=== PATIENT | female | born 2005 | race Caucasian/White ===

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

== ENCOUNTER 2023-03-22 15:33 | Emergency (ER) | payer OTHER, MEDICAID, SELFPAY ==
[2023-03-22 15:55] VITALS: BP 119/55; PULSE 85; RESP 18; TEMP 37; O2SAT 97; BMI 32.4
--- NOTE | 2023-03-22 16:01 | DI.RAD.S_ITS ---
PROCEDURE: XR ANKLE RT MIN 3V INDICATIONS: injury to ankle TECHNIQUE: 3 views of the ankle were acquired. COMPARISON: [facility], CR, XR ANKLE RT MIN 3V, 08/28/2019, 15:45. FINDINGS: Bones: No fractures or dislocations. Ankle mortise is normally aligned. No suspicious bony lesions. Soft tissues: No tibiotalar joint effusion. Achilles tendon appears normal. IMPRESSION: No acute ankle fracture or dislocation. Ankle mortise is congruent. Dictated by: Edmar Mix M.D. on 03/22/2023 at 16:40 Approved by: Edmar Mix M.D. on 03/22/2023 at 16:40
--- NOTE | 2023-03-22 17:09 | ED.LOWEXIN ---
HPI - Extremity Injury (Lower) <Froilan Black PA-C - Last Filed: 03/22/23 20:10> General Chief Complaint: Extremity Injury, Lower Stated Complaint: rt ankle injury Time Seen by Provider: 03/22/23 15:49 Source: patient Mode of arrival: Ambulatory History of Present Illness HPI Narrative: This is a 17-year-old female presents to the emergency department complaining of right ankle pain after slipping and rolling her right ankle. She denies any numbness or any other injuries. Complains solely of right ankle pain. Related Data Previous Rx's Medication Instructions Recorded aripiprazole 5 mg tablet 5 mg PO BEDTIME #90 tabs 05/04/22 hydroxyzine HCl 25 mg tablet 50 mg PO BEDTIME PRN anxiety #60 05/04/22 tabs trazodone 50 mg tablet 50 mg PO BEDTIME PRN sleep #60 tabs 05/04/22 nitrofurantoin 100 mg PO BID #10 caps 05/24/22 monohydrate/macrocrystals 100 mg capsule (Macrobid) ondansetron 4 mg disintegrating 4 mg PO Q8H PRN nausea and 02/25/23 tablet vomiting #6 tabs Allergies Allergy/AdvReac Type Severity Reaction Status Date / Time No Known Drug Allergies Allergy Verified 09/07/22 13:43 Review of Systems <Froilan Black PA-C - Last Filed: 03/22/23 20:10> Review of Systems Narrative: GENERAL: Denies chills, fatigue, malaise, fever, sweats. HEENT: Denies sinus pain, ear pain, sore throat, difficulty swallowing, dizziness. RESPIRATORY: Denies dyspnea, cough, wheezing, hemoptysis, sputum. CARDIOVASCULAR: Denies chest pain, palpitations, orthopnea, edema, GASTROINTESTINAL: Denies nausea, vomiting, abdominal pain, diarrhea, constipation, melena. : Denies dysuria, frequency, incontinence, hematuria, urinary retention. MUSCULOSKELETAL: Reports right ankle pain SKIN: Denies rash, skin lesions, or other NEUROLOGIC: Denies weakness, headache, numbness, change in speech, confusion, seizures, incoordination. PSYCHIATRIC: No concerning psychosocial issues. 12 point review of systems is negative except for those stated above Patient History <MUMTAZ Flynn Last Filed: 03/22/23 20:10> Medical History Anxiety and depression Bilateral hip pain Mood disorder No known health problems (02/07/12) Social History Smoking Status: Never smoker Smoking Status: Never smoker tobacco type: vaping alcohol intake frequency: 0-2 drinks per day Substance Use Type: does not use Exam <Froilan Black PA-C - Last Filed: 03/22/23 20:10> Narrative Exam Narrative: GENERAL: Well-developed patient, in mild distress. HEAD: Atraumatic. Normocephalic. EYES: Pupils equal round and reactive. Extraocular motions intact. No scleral icterus. No injection or drainage. ENT: Nose without bleeding, purulent drainage. Throat without erythema, tonsillar hypertrophy or exudate. Airway patent. NECK: Trachea midline. Non tender EXTREMITIES: Mild tenderness to palpation to the right lateral malleolus. Neurovascularly intact throughout. BACK: Nontender without deformity or crepitance. No flank tenderness. NEURO: AOx3. SKIN: No rash or erythema of visible areas Initial Vital Signs Initial Vital Signs: Vital Signs Temperature 98.6 F 03/22/23 15:55 Pulse Rate 85 03/22/23 15:55 Respiratory Rate 18 03/22/23 15:55 Blood Pressure 119/55 L 03/22/23 15:55 Pulse Oximetry 97 03/22/23 15:55 Oxygen Delivery Method Room Air 03/22/23 15:55 <Carlos Arita DO - Last Filed: 03/28/23 04:12> Initial Vital Signs Initial Vital Signs: Vital Signs Temperature 98.6 F 03/22/23 15:55 Pulse Rate 85 03/22/23 15:55 Respiratory Rate 18 03/22/23 15:55 Blood Pressure 119/55 L 03/22/23 15:55 Pulse Oximetry 97 03/22/23 15:55 Oxygen Delivery Method Room Air 03/22/23 15:55 Course <Froilan Black PA-C - Last Filed: 03/22/23 20:10> Orders Ordered: ED Orders 03/22/23 16:01 XR ankle RT min 3V Stat Vital Signs Vital signs: Vital Signs - 8 hr 03/22/23 15:55 03/22/23 17:13 Temperature 98.6 F Pulse Rate 85 82 Respiratory Rate 18 16 Blood Pressure 119/55 L 120/60 Pulse Oximetry 97 99 Oxygen Delivery Method Room Air Room Air <Carlos Arita DO - Last Filed: 03/28/23 04:12> Orders Ordered: ED Orders 03/22/23 16:01 XR ankle RT min 3V Stat Vital Signs Vital signs: Vital Signs - 8 hr 03/22/23 15:55 03/22/23 17:13 Temperature 98.6 F Pulse Rate 85 82 Respiratory Rate 18 16 Blood Pressure 119/55 L 120/60 Pulse Oximetry 97 99 Oxygen Delivery Method Room Air Room Air MDM - Extremity Injury (Lower) <Froilan Black PA-C - Last Filed: 03/22/23 20:10> Imaging Data Extremity x-ray #1: Radiologist's Impression: [address] [address] XRay Report Signed Patient: Yessenia Javier MR#: [id number] : 2005 Acct:[id number] Age/Sex: 17 / F Date of Service: 03/22/23 Loc: ED Accession Number: [id number] ?? Procedure: XR ankle RT min 3V Ordering Provider: Carlos Arita D.O. PROCEDURE:? XR ANKLE RT MIN 3V ? INDICATIONS:? injury to ankle ? TECHNIQUE:? 3 views of the ankle were acquired.? ? COMPARISON:? [facility], , XR ANKLE RT MIN 3V, 08/28/2019, 15:45. ? FINDINGS:? ? Bones:? No fractures or dislocations.? Ankle mortise is normally aligned.? No suspicious bony lesions.? ? Soft tissues:? No tibiotalar joint effusion.? Achilles tendon appears normal.? ? ? IMPRESSION:? No acute ankle fracture or dislocation.? Ankle mortise is congruent. ? Dictated by: Edmar Mix M.D. on 03/22/2023 at 16:40 ? ? Approved by: Edmar Mix M.D. on 03/22/2023 at 16:40 ? MDM Narrative Medical decision making narrative: MDM * differential diagnosis includes but not limited to right ankle fracture, neurovascular injury, ankle sprain * Prior records reviewed: Patient has not been here for similar complaints in the past * My lab interpretation: None obtained * My imgaing interpretation: Right ankle x-ray negative for fracture * Clinical Decision Rules/Scores evaluated: None * Independent discussions with: None ED Course: This is a 17-year-old female presenting to the emergency department due to a sprained ankle. X-ray negative for fractures and she was completely neurovascularly intact. Recommended conservative management. Shared Decision Making: Discussed plan with patient who is comfortable with the plan. Social Considerations: None Disposition: Discharged to home Discharge Plan Departure Patient Disposition: Home Clinical Impression: Right ankle sprain Instructions: DI for Ankle Sprain Activity Restrictions/Additional Instructions: Thank you for coming to the [facility] Emergency Department today. Your ankle x-ray was negative for any fractures. This is an ankle sprain. Please use ibuprofen and Tylenol as needed for the pain. I hope you feel better soon. Prescriptions: No Action ondansetron 4 mg tablet,disintegrating 4 mg PO Q8H PRN (Reason: nausea and vomiting) Qty: 6 0RF aripiprazole 5 mg tablet 5 mg PO BEDTIME Qty: 90 3RF hydroxyzine HCl 25 mg tablet 50 mg PO BEDTIME PRN (Reason: anxiety) Qty: 60 1RF trazodone 50 mg tablet 50 mg PO BEDTIME PRN (Reason: sleep) Qty: 60 3RF nitrofurantoin monohyd/m-cryst [Macrobid] 100 mg capsule 100 mg PO BID Qty: 10 0RF Rx Instructions: must administer with a meal/food Referrals: Kurtis Austin MD [Primary Care Provider] - Stand Alone Forms: Patient Portal/API, Work Release Note <Carlos Arita DO - Last Filed: 03/28/23 04:12> [facility] Attending Ravi Attestation: I was immediately available in the department for consultation. Documentation has been reviewed. I agree with assessment and plan.
[2023-03-22 17:13] VITALS: BP 120/60; PULSE 82; RESP 16; O2SAT 99
== END 2023-03-22 17:13 | disposition home or self-care (01) ==
PROVIDERS: Emergency Provider Physician Assistant Medical; Family Provider Pediatrics; PCP Pediatrics
DX: S93.401A Sprain of unspecified ligament of right ankle, initial encounter (principal); X50.1XXA Overexertion from prolonged static or awkward postures, initial encounter
CPT/HCPCS: 73610; 99281; 99283

== ENCOUNTER 2023-04-08 14:13 | Emergency (ER) | payer OTHER, MEDICAID, SELFPAY ==
--- NOTE | 2023-04-08 14:41 | DI.RAD.S_ITS ---
PROCEDURE: XR ANKLE RT MIN 3V INDICATIONS: states her sprain is worse TECHNIQUE: 3 views of the ankle were acquired. COMPARISON: [facility], CR, XR ANKLE RT MIN 3V, 03/22/2023, 15:56. FINDINGS: Bones: No fractures or dislocations. Ankle mortise is normally aligned. No suspicious bony lesions. Soft tissues: No tibiotalar joint effusion. Achilles tendon appears normal. IMPRESSION: No acute abnormality of the right ankle. If pain persists consider MRI. Dictated by: Anjel House M.D. on 04/08/2023 at 14:40 Approved by: Anjel House M.D. on 04/08/2023 at 14:41
[2023-04-08 14:42] VITALS: BP 125/65; PULSE 65; RESP 18; TEMP 36.8; O2SAT 97; BMI 31.9
--- NOTE | 2023-04-08 15:29 | ED_ITS ---
HPI - Extremity Problem <Adrienne Pollard PA-C - Last Filed: 04/08/23 22:14> General Chief complaint: Extremity Problem,Nontraumatic Stated complaint: R ankle sprain, worsening, ankle bone popping Time Seen by Provider: 04/08/23 15:28 Source: patient Mode of arrival: Family Vehicle History of Present Illness HPI Narrative: This is a 17-year-old woman with history of previous ankle sprains on the right multiple times most recently 03/22/2023 who presents with concern for persistent pain and a popping sensation with moving her foot after her ankle sprain sustained on 03/22/2023. Patient endorses that the next 2 days after her injury she was unable to use crutches and had to walk quite a bit on her injured foot in order to help a friend of hers who was having seizures. Patient stated that she did not actually use the crutches until yesterday and today and she does not feel that she elevated iced or used Gus wrap for compression early on either. Patient does endorse multiple previous sprains of her right ankle most recently about 1 year ago, she states she has sprained this ankle pretty significantly 3 or 4 times in total. She denies any known previous fracture or other injury to the affected area. She presents today in crutches without Gus wrap or other support. She states she was provided with an Gus wrap at her ED visit on the . She denies other complaints or concerns. Related Data Previous Rx's Medication Instructions Recorded aripiprazole 5 mg tablet 5 mg PO BEDTIME #90 tabs 05/04/22 hydroxyzine HCl 25 mg tablet 50 mg PO BEDTIME PRN anxiety #60 05/04/22 tabs trazodone 50 mg tablet 50 mg PO BEDTIME PRN sleep #60 tabs 05/04/22 nitrofurantoin 100 mg PO BID #10 caps 05/24/22 monohydrate/macrocrystals 100 mg capsule (Macrobid) ondansetron 4 mg disintegrating 4 mg PO Q8H PRN nausea and 02/25/23 tablet vomiting #6 tabs Allergies Allergy/AdvReac Type Severity Reaction Status Date / Time No Known Drug Allergies Allergy Verified 09/07/22 13:43 Review of Systems <Adrienne Pollard PA-C - Last Filed: 04/08/23 22:14> Review of Systems Narrative: See HPI Patient History <Adrienne Pollard PA-C - Last Filed: 04/08/23 22:14> Medical History Anxiety and depression Bilateral hip pain Mood disorder No known health problems (02/07/12) Social History Smoking Status: Never smoker Smoking Status: Never smoker tobacco type: vaping alcohol intake frequency: 0-2 drinks per day Substance Use Type: does not use Exam <Adrienne Pollard PA-C - Last Filed: 04/08/23 22:14> Narrative Exam Narrative: GENERAL: 17 year old patient appears stated age. Well-developed patient, in mild distress. HEAD: Atraumatic. Normocephalic. EYES: Pupils equal round and reactive. Extraocular motions intact. No scleral icterus. No injection or drainage. ENT: Nose without bleeding, purulent drainage. Airway patent. NECK: Trachea midline. CARDIOVASCULAR: Regular rate and rhythm without murmurs, gallops, or rubs. RESPIRATORY: Clear to auscultation. Breath sounds equal bilaterally. No wheezes, rales, or rhonchi. EXTREMITIES: There is mild swelling of the right ankle with tenderness over the lateral malleolus and ATFL. There is no bruising noted. Range of motion is intact with some increased pain. No edema or joint tenderness. The remainder of the bones of the foot are nontender, patient does have tenderness over the proximal fibula with no appreciable swelling. NEURO: AOx3. SKIN: No rash or erythema of visible areas Initial Vital Signs Initial Vital Signs: Vital Signs Temperature 98.2 F 04/08/23 14:42 Pulse Rate 65 04/08/23 14:42 Respiratory Rate 18 04/08/23 14:42 Blood Pressure 125/65 04/08/23 14:42 Pulse Oximetry 97 04/08/23 14:42 Oxygen Delivery Method Room Air 04/08/23 14:42 <Travis Lomeli DO - Last Filed: 04/08/23 22:19> Initial Vital Signs Initial Vital Signs: Vital Signs Temperature 98.2 F 04/08/23 14:42 Pulse Rate 65 04/08/23 14:42 Respiratory Rate 18 04/08/23 14:42 Blood Pressure 125/65 04/08/23 14:42 Pulse Oximetry 97 04/08/23 14:42 Oxygen Delivery Method Room Air 04/08/23 14:42 Course <Adrienne Pollard PA-C - Last Filed: 04/08/23 22:14> Orders Ordered: ED Orders 04/08/23 14:41 XR ankle RT min 3V Stat 04/08/23 18:26 XR tibia fibula RT 2V Stat Vital Signs Vital signs: Vital Signs - 8 hr 04/08/23 14:42 04/08/23 17:41 Temperature 98.2 F Pulse Rate 65 53 L Respiratory Rate 18 Blood Pressure 125/65 119/73 Pulse Oximetry 97 98 Oxygen Delivery Method Room Air Room Air <Travis Lomeli DO - Last Filed: 04/08/23 22:19> Orders Ordered: ED Orders 04/08/23 14:41 XR ankle RT min 3V Stat 04/08/23 18:26 XR tibia fibula RT 2V Stat Vital Signs Vital signs: Vital Signs - 8 hr 04/08/23 14:42 04/08/23 17:41 Temperature 98.2 F Pulse Rate 65 53 L Respiratory Rate 18 Blood Pressure 125/65 119/73 Pulse Oximetry 97 98 Oxygen Delivery Method Room Air Room Air MDM - Extremity (Nontraumatic) <Adrienne Pollard PA-C - Last Filed: 04/08/23 22:14> Differential Diagnosis Differential diagnosis: Likely other (Sprain, strain, ankle sprain, fracture, fibula fracture) Imaging Data Extremity x-ray #1: My Impression: Agree with Radiology interpretation Radiologist's Impression: [address] [address] XRay Report Signed Patient: Yessenia Javier MR#: [id number] : 2005 Acct:[id number] Age/Sex: 17 / F Date of Service: 04/08/23 Loc: ED Accession Number: [id number] ?? Procedure: XR ankle RT min 3V Ordering Provider: Andreea Matt D.O. PROCEDURE:? XR ANKLE RT MIN 3V ? INDICATIONS:? states her sprain is worse ? TECHNIQUE:? 3 views of the ankle were acquired.? ? COMPARISON:? [facility], CR, XR ANKLE RT MIN 3V, 03/22/2023, 15:56. ? FINDINGS:? ? Bones:? No fractures or dislocations.? Ankle mortise is normally aligned.? No suspicious bony lesions.? ? Soft tissues:? No tibiotalar joint effusion.? Achilles tendon appears normal.? ? ? IMPRESSION:? No acute abnormality of the right ankle.? If pain persists consider MRI.? ? Dictated by: Anjel House M.D. on 04/08/2023 at 14:40 ? ? Approved by: Anjel House M.D. on 04/08/2023 at 14:41?? Extremity x-ray #2: My Impression: Agree with Radiology interpretation Radiologist's Impression: [address] [address] XRay Report Signed Patient: Yessenia Javier MR#: [id number] : 2005 Acct:[id number] Age/Sex: 17 / F Date of Service: 04/08/23 Loc: ED Accession Number: [id number] ?? Procedure: XR tibia fibula RT 2V Ordering Provider: Adrienne Pollard P.A-C PROCEDURE:? XR TIBIA FUBULA RT 2V ? INDICATIONS:? proximal fibula tenderness ? TECHNIQUE:? 2 views of the tibia and fibula were acquired.? ? COMPARISON:? None. ? FINDINGS:? ? Bones:? No fractures or dislocations.? No suspicious bony lesions.? ? Soft tissues:? No suspicious soft tissue calcifications or masses.? ? IMPRESSION:? Normal right tibia and fibula. ? ? Dictated by: Anjel House M.D. on 04/08/2023 at 18:17 ? ? Approved by: Anjel House M.D. on 04/08/2023 at 18:18?? MDM Narrative Medical decision making narrative: This is a 17-year-old female who presents with concern for persistent right ankle discomfort mild swelling pain and popping sensation after Pt seen for ankle injury and diagnosed with sprain on 03/22/23 in this ER. On exam today patient does have some persistent tenderness and mild swelling, notably she also has some proximal fibula tenderness and x-rays of the ankle repeat were ordered from triage, after exam x-rays of tibia and fibula also ordered. These returned unremarkable without evidence of fracture. Patient endorses not treating her injury with RI CE and not using crutches until yesterday, 17 days after she sustained her sprain due to worsening pain in the last few days. 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 She has been continuing to work since her injury. Notably also has multiple previous sprains of this ankle. Patient is placed in a orthopedic boot today advised to use the crutches that she has and stay off of her foot, provided with a work note for the next 6 days for light duty advised to follow-up with orthopedics if she is not improving with RI CE, crutches and nonweightbearing. Advanced imaging is not obtained today as I think it is unlikely the patient has an occult fracture, most likely she simply has a sprain strain that was not well cared for initially after injury. She is advised to a minimum follow up with her PCP see orthopedics if she is not improving. Return precautions provided, follow-up plan discussed, all questions answered. Discharge Plan Departure Patient Disposition: Home Clinical Impression: Right ankle sprain Activity Restrictions/Additional Instructions: *You have been diagnosed with [ Right ankle sprain] *What to do: *Please continue to take your regular medications as directed. [ ] New medication prescriptions sent to your pharmacy: [ ] [ ] New medication written as a paper prescription [X ] No new medications given *Please follow up with your primary care provider in 2-3 days, call for an appointment. Let them know you were seen in the Emergency Department and that we ask that you be seen in follow up. We will electronically transmit a record of today's note if your PCP is in our system. We re-x-rayed your ankle today and also looked at your tibia and fibula the bones in your lower leg these look okay and there is no evidence of fracture. Unfortunately you may take extra long to heal as you were not able to stay off of your sprained ankle when it 1st happened, I do want you using the ankle orthopedic boot provided today and using crutches for the next 7-10 days I would like you to use an Gus wrap at night when you are resting if you do not have a boot on. Please try to minimize weight-bearing and walking on your injured leg and I have also included contact information for orthopedics below as you have had multiple previous sprains of this ankle and your clearly having some delayed healing. *If you do not have a primary care provider please contact the [facility] Resource line at [phone]. They will ask some questions about your medical history and help get you set up with a doctor in the community. *Return to Emergency Department if you should have any new, worsening or concerning symptoms, such as [fever greater than 101 F, shaking chills, worsening pain, persistent vomiting or other bothersome symptoms] Prescriptions: No Action ondansetron 4 mg tablet,disintegrating 4 mg PO Q8H PRN (Reason: nausea and vomiting) Qty: 6 0RF aripiprazole 5 mg tablet 5 mg PO BEDTIME Qty: 90 3RF hydroxyzine HCl 25 mg tablet 50 mg PO BEDTIME PRN (Reason: anxiety) Qty: 60 1RF trazodone 50 mg tablet 50 mg PO BEDTIME PRN (Reason: sleep) Qty: 60 3RF nitrofurantoin monohyd/m-cryst [Macrobid] 100 mg capsule 100 mg PO BID Qty: 10 0RF Rx Instructions: must administer with a meal/food Referrals: Kurtis Austin MD [Primary Care Provider] - Amy Majano MD [Physician] - Stand Alone Forms: Patient Portal/API, Work Release Note <Travis Lomeli, DO - Last Filed: 04/08/23 22:19> [facility]: Dr Lomeli Co-Sign Statement: I was available for consultation during this patient's emergency department visit. This chart is signed by myself for administrative purposes only. I did not have direct contact with this patient during this visit. They were seen independently by the APC.
[2023-04-08 17:41] VITALS: BP 119/73; PULSE 53; O2SAT 98
--- NOTE | 2023-04-08 18:26 | DI.RAD.S_ITS ---
PROCEDURE: XR TIBIA FUBULA RT 2V INDICATIONS: proximal fibula tenderness TECHNIQUE: 2 views of the tibia and fibula were acquired. COMPARISON: None. FINDINGS: Bones: No fractures or dislocations. No suspicious bony lesions. Soft tissues: No suspicious soft tissue calcifications or masses. IMPRESSION: Normal right tibia and fibula. Dictated by: Anjel House M.D. on 04/08/2023 at 18:17 Approved by: Anjel House M.D. on 04/08/2023 at 18:18
== END 2023-04-08 19:05 | disposition home or self-care (01) ==
PROVIDERS: Emergency Provider Student in an Organized Health Care Education/Training Program; Family Provider Pediatrics; PCP Pediatrics
DX: S93.401D Sprain of unspecified ligament of right ankle, subsequent encounter (principal)
CPT/HCPCS: 73590; 73610; 99281; 99283

== ENCOUNTER 2023-07-27 15:15 | Outpatient (RCR) | payer OTHER, MEDICAID, SELFPAY ==
--- NOTE | 2023-07-07 15:48 | PT.OIE ---
Current Diagnoses Pain in right hip (07/07/23) Pain in left hip (07/07/23) Pain in right ankle and joints of right foot (07/07/23) Past Medical History (Last Reviewed 04/08/23 @ 22:07 by Adrienne Pollard PA-C) Anxiety and depression Bilateral hip pain Mood disorder No known health problems (02/07/12) Visit Care Team Role Provider Type Kurtis Austin MD Attending Provider Physician Family Provider Primary Care Provider Referring Provider Specialty: Pediatrics Address: [address] [place] [address], [facility] Email: [email or web address] Physical Therapy Initial Evaluation PT-OP-A Visit Information Start: 07/07/23 14:44 Freq: Status: Active Protocol: Document 07/07/23 15:33 ED (Rec: 07/07/23 15:48 ED [id number]) Out-Patient Physical Therapy Visit Information Visit Information Visit Type Initial Evaluation Visit Note 0/24 units Visit Start Time 14:50 Visit Stop Time 15:30 Total Visit Minutes 40 Visit Number 1 Evaluation Information Evaluation Date 07/07/23 PT-OP-B Current Condition Start: 07/07/23 14:44 Freq: Status: Active Protocol: Document 07/07/23 15:33 ED (Rec: 07/07/23 15:48 ED [id number]) Current Condition History of Current Condition Onset Date 3-4 years Current Complaints B hip, R ankle pain History of Current Condition Pt states that she has had B hip pain for years. It is worse with activity such as prolonged walking or when running and jumping which she only does when playing with her dog. She was told she has inflammed nerves in her hips and that's the cause. Pt also has R ankle pain that she believes is from recurrent ankle sprains with her most recent one being in the summer of this year. She states her hip and ankle pop all the time and that's very painful. PT-OP-C Subjective Start: 07/07/23 14:44 Freq: Status: Active Protocol: Document 07/07/23 15:33 ED (Rec: 07/07/23 15:48 ED [id number]) Patient Questionnaires Lower Extremity Functional Scale LEFS Score 44 / 80 LEFS Impairment 40 to 59% Impaired (Score 32- 47) OP-PT Pain Assessment Location B hips Pain Location Details B hips, down lateral thigh into ankle Intensity 8 Scale Used Numeric (0 - 10) Description Aching,Shooting,Tingling PT-OP-D Balance Start: 07/07/23 14:44 Freq: Status: Active Protocol: Document 07/07/23 15:33 ED (Rec: 07/07/23 15:48 ED [id number]) Balance Tests Single Limb Standing Single Limb- Right 5 seconds Single Limb- Left >10 seconds PT-OP-K Range of Motion Start: 07/07/23 14:44 Freq: Status: Active Protocol: Document 07/07/23 15:33 ED (Rec: 07/07/23 15:48 ED [id number]) Ankle and Foot Goniometric Range of Motion Ankle and Foot Right Active Ankle/Foot ROM WFL Yes Testing Position Standing Comments knee to wall: 9 cm Left Active Ankle/Foot ROM WFL Yes Testing Position Standing Comments knee to wall: 13 cm PT-OP-L Special Tests Start: 07/07/23 14:44 Freq: Status: Active Protocol: Document 07/07/23 15:33 ED (Rec: 07/07/23 15:48 ED [id number]) Special Tests Hip Special Tests Posterior Labral Test Test Results - Trendelenberg Test Results - Scour Test Test Results - PT-OP-T Assessment and Plan Start: 07/07/23 14:44 Freq: Status: Active Protocol: Document 07/07/23 15:33 ED (Rec: 07/07/23 15:48 ED [id number]) Physical Therapy Assessment Rehab Potential Rehabilitation Potential Fair Evaluation Complexity Number of Personal Factors/Comorbidities 1-2 Number of Body Systems Impaired 3 Clinical Presentation at Evaluation Evolving Impairments Impairments Activity Tolerance,Balance, Functional Activities, Functional Mobility,Pain, Strength Goals impact activities Impairment impact activities Court Attendant Goal (LTG) Pt will be able to perform jumping and landing activities c/o pain in ankles or hips. LTG Duration 6-8 weeks % improvement Impairment % improvement Short Term Goal (STG) Pt will report 15% improvement in B hip and/or R ankle pain. STG Duration [address] Goal (LTG) Pt will report 50% improvement in B hip and/or R ankle pain. LTG Duration 6-8 weeks single leg heel raise Impairment R LE single leg heel raise Short Term Goal (STG) Pt will be able to perform 5 single leg heel raises on R LE c/o pain. STG Duration [address] Goal (LTG) Pt will be able to perform 10 full ROM single leg heel raises on R LE c/o pain. LTG Duration 6-8 weeks LEFS Impairment LEFS Impairment score at evaluation: 44 / 80 Nursing Home Goal (LTG) Pt will improve LEFS score by > 9 points to a score <35/80. LTG Duration 6-8 weeks HEP Impairment HEP Short Term Goal (STG) Pt will report performing HEP >3 days/week. STG Duration 2-3 weeks Nursing Home Goal (LTG) Pt will report performing HEP >3 days/week. LTG Duration 6-8 weeks Assessment Summary Assessment Pt reported to PT for B hip and R ankle pain. Pt has history of R ankle sprains with her most recent being in the summer. Pt also appeared to have posterior tibilias related pain in R ankle as demonstrated when she tried to perform a single leg heel raise on her R LE. Pt demonstrated full ROM in B hips with no pain noted throughout the ROM. Pt likely requires some pain education and gradual exposure to stress to hips/ankles to improve self efficacy and confidence in her ability to perform daily and recreational activities. Physical Therapy Plan Frequency and Duration Frequency of Treatment 2x/Week Duration of treatment (weeks) 10 Plan of Care Start Date 07/07/23 Plan of Care End Date 10/05/23 Next Visit Focus/Plan Next Note Type Treatment Note Next Visit Plan TM, retro TM, (post tib heel raise, butt busters, SL balance) banded walk, ankle mobs, LTRs, pigeon stretch, squat
--- NOTE | 2023-07-07 15:49 | PT.OPPOC ---
Physical, Occupational & Speech Therapy At [facility] Current Diagnoses Pain in right hip (07/07/23) Pain in left hip (07/07/23) Pain in right ankle and joints of right foot (07/07/23) Visit Care Team Role Provider Type Kurtis Austin MD Attending Provider Physician Family Provider Primary Care Provider Referring Provider Specialty: Pediatrics Address: [address] [place] [address], [place], [address] Email: [email or web address] Plan Of Care PT-OP-T Assessment and Plan Start: 07/07/23 14:44 Freq: Status: Active Protocol: Document 07/07/23 15:33 ED (Rec: 07/07/23 15:48 ED [id number]) Physical Therapy Assessment Rehab Potential Rehabilitation Potential Fair Evaluation Complexity Number of Personal Factors/Comorbidities 1-2 Number of Body Systems Impaired 3 Clinical Presentation at Evaluation Evolving Impairments Impairments Activity Tolerance,Balance, Functional Activities, Functional Mobility,Pain, Strength Goals impact activities Impairment impact activities Tire Maker Goal (LTG) Pt will be able to perform jumping and landing activities c/o pain in ankles or hips. LTG Duration 6-8 weeks % improvement Impairment % improvement Short Term Goal (STG) Pt will report 15% improvement in B hip and/or R ankle pain. STG Duration 3 weeks Senior Living Goal (LTG) Pt will report 50% improvement in B hip and/or R ankle pain. LTG Duration 6-8 weeks single leg heel raise Impairment R LE single leg heel raise Short Term Goal (STG) Pt will be able to perform 5 single leg heel raises on R LE c/o pain. STG Duration 3 weeks Senior Living Goal (LTG) Pt will be able to perform 10 full ROM single leg heel raises on R LE c/o pain. LTG Duration 6-8 weeks LEFS Impairment LEFS Impairment score at evaluation: 44 / 80 Tire Maker Goal (LTG) Pt will improve LEFS score by > 9 points to a score <35/80. LTG Duration 6-8 weeks HEP Impairment HEP Short Term Goal (STG) Pt will report performing HEP >3 days/week. STG Duration 2-3 weeks Senior Living Goal (LTG) Pt will report performing HEP >3 days/week. LTG Duration 6-8 weeks Assessment Summary Assessment Pt reported to PT for B hip and R ankle pain. Pt has history of R ankle sprains with her most recent being in the summer. Pt also appeared to have posterior tibilias related pain in R ankle as demonstrated when she tried to perform a single leg heel raise on her R LE. Pt demonstrated full ROM in B hips with no pain noted throughout the ROM. Pt likely requires some pain education and gradual exposure to stress to hips/ankles to improve self efficacy and confidence in her ability to perform daily and recreational activities. Physical Therapy Plan Frequency and Duration Frequency of Treatment 2x/Week Duration of treatment (weeks) 10 Plan of Care Start Date 07/07/23 Plan of Care End Date 10/05/23 Next Visit Focus/Plan Next Note Type Treatment Note Next Visit Plan TM, retro TM, (post tib heel raise, butt busters, SL balance) banded walk, ankle mobs, LTRs, pigeon stretch, squat Plan of Care Dates Plan of Care Start Date 07/07/23 Plan of Care End Date 10/05/23 Electronically Signed by: Josemanuel Rodriguez, PT 07/07/23 1549 If you are in agreement with this Plan of Care, please return a signed and dated copy. I have reviewed this Plan of Care and certify that the skilled therapy services above are required to meet the patient?s needs. Physician Signature Date Printed Name and Credentials Clinical Instructor Signature Printed Name and Credentials
--- NOTE | 2023-07-14 15:59 | PT.OTN ---
Current Diagnoses Pain in right hip (07/14/23) Pain in left hip (07/14/23) Pain in right ankle and joints of right foot (07/14/23) Physical Therapy Treatment Note PT-OP-A Visit Information Start: 07/07/23 14:44 Freq: Status: Active Protocol: Document 07/14/23 15:55 ED (Rec: 07/14/23 15:59 ED [id number]) Out-Patient Physical Therapy Visit Information Visit Information Visit Type Initial Evaluation Visit Note 10/25 units Visit Start Time 15:15 Visit Stop Time 15:55 Total Visit Minutes 40 Visit Number 2 PT-OP-B Current Condition Start: 07/07/23 14:44 Freq: Status: Active Protocol: Document 07/07/23 15:33 ED (Rec: 07/07/23 15:48 ED [id number]) Current Condition History of Current Condition Onset Date 3-4 years Current Complaints B hip, R ankle pain History of Current Condition Pt states that she has had B hip pain for years. It is worse with activity such as prolonged walking or when running and jumping which she only does when playing with her dog. She was told she has inflammed nerves in her hips and that's the cause. Pt also has R ankle pain that she believes is from recurrent ankle sprains with her most recent one being in the summer of this year. She states her hip and ankle pop all the time and that's very painful. PT-OP-C Subjective Start: 07/07/23 14:44 Freq: Status: Active Protocol: Document 07/14/23 15:55 ED (Rec: 07/14/23 15:59 ED [id number]) OP-PT Subjective Patient Comments Patient Comments Pt states that her R knee is bothering her today. Her ankles and hip feeling the same. PT-OP-D Balance Start: 07/07/23 14:44 Freq: Status: Active Protocol: Document 07/07/23 15:33 ED (Rec: 07/07/23 15:48 ED [id number]) Balance Tests Single Limb Standing Single Limb- Right 5 seconds Single Limb- Left >10 seconds PT-OP-K Range of Motion Start: 07/07/23 14:44 Freq: Status: Active Protocol: Document 07/07/23 15:33 ED (Rec: 07/07/23 15:48 ED [id number]) Ankle and Foot Goniometric Range of Motion Ankle and Foot Right Active Ankle/Foot ROM WFL Yes Testing Position Standing Comments knee to wall: 9 cm Left Active Ankle/Foot ROM WFL Yes Testing Position Standing Comments knee to wall: 13 cm PT-OP-L Special Tests Start: 07/07/23 14:44 Freq: Status: Active Protocol: Document 07/07/23 15:33 ED (Rec: 07/07/23 15:48 ED [id number]) Special Tests Hip Special Tests Posterior Labral Test Test Results - Trendelenberg Test Results - Scour Test Test Results - PT-OP-Q Treatments Start: 07/07/23 14:44 Freq: Status: Active Protocol: Document 07/14/23 15:55 ED (Rec: 07/14/23 15:59 ED [id number]) Cardio Equipment Recumbent Bicycle Duration (Minutes) 5 Treadmill Duration (Minutes) 5 Speed 1.2 Incline 1.0 Other retro Therapeutic Exercises Sidelying Exercises glute matrix Sidelying Exercise Name Gail mukherjee, hip flexion, hip abduction Reps/Minutes x10 Sitting Exercises knee extension Sitting Exercise Name knee extension Resistance L1 Equipment Used machine Reps/Minutes 2x15 Standing Exercises banded walk Resistance turquoise Equipment Used band Reps/Minutes 2x15' heel raise Standing Exercise Name SL heel raise Equipment Used CHAVO Reps/Minutes 2x15 post tib heel raise Equipment Used small ball Reps/Minutes 2x20 heel cord stretch Reps/Minutes 2x1 minute PT-OP-T Assessment and Plan Start: 07/07/23 14:44 Freq: Status: Active Protocol: Document 07/14/23 15:55 ED (Rec: 07/14/23 15:59 ED [id number]) Physical Therapy Assessment Goals impact activities Impairment impact activities Long-Term Goal (LTG) Pt will be able to perform jumping and landing activities c/o pain in ankles or hips. LTG Duration 6-8 weeks % improvement Impairment % improvement Short Term Goal (STG) Pt will report 15% improvement in B hip and/or R ankle pain. STG Duration 3 weeks Long-Term Goal (LTG) Pt will report 50% improvement in B hip and/or R ankle pain. LTG Duration 6-8 weeks single leg heel raise Impairment R LE single leg heel raise Short Term Goal (STG) Pt will be able to perform 5 single leg heel raises on R LE c/o pain. STG Duration 3 weeks Hydroelectric Station Operator Goal (LTG) Pt will be able to perform 10 full ROM single leg heel raises on R LE c/o pain. LTG Duration 6-8 weeks LEFS Impairment LEFS Impairment score at evaluation: 44 / 80 Long-Term Goal (LTG) Pt will improve LEFS score by > 9 points to a score <35/80. LTG Duration 6-8 weeks HEP Impairment HEP Short Term Goal (STG) Pt will report performing HEP >3 days/week. STG Duration 2-3 weeks Long-Term Goal (LTG) Pt will report performing HEP >3 days/week. LTG Duration 6-8 weeks Assessment Summary Assessment Pt tolerated session well which included ankle, knee, and hip stimuli such as band walks, heel raises, knee extensions, and a glute matrix . Pt denied any increase in pain during or acutely after the movements. Pt understanding that PT will require some discomfort but also that she should work in a tolerable range and not try to push the pain. Physical Therapy Plan Frequency and Duration Frequency of Treatment 2x/Week Duration of treatment (weeks) 10 Plan of Care Start Date 07/07/23 Plan of Care End Date 10/05/23 Next Visit Focus/Plan Next Note Type Treatment Note Next Visit Plan TM, retro TM, (post tib heel raise, butt busters, SL balance) banded walk, ankle mobs, LTRs, pigeon stretch, squat
--- NOTE | 2023-07-26 17:16 | PT.OTN ---
Current Diagnoses Pain in right hip (07/26/23) Pain in left hip (07/26/23) Pain in right ankle and joints of right foot (07/26/23) Physical Therapy Treatment Note PT-OP-A Visit Information Start: 07/07/23 14:44 Freq: Status: Active Protocol: Document 07/26/23 17:12 ED (Rec: 07/26/23 17:16 ED [id number]) Out-Patient Physical Therapy Visit Information Visit Information Visit Type Treatment Note Visit Note 01/23 Visit Start Time 14:45 Visit Stop Time 15:15 Total Visit Minutes 30 Visit Number 3 PT-OP-B Current Condition Start: 07/07/23 14:44 Freq: Status: Active Protocol: Document 07/07/23 15:33 ED (Rec: 07/07/23 15:48 ED [id number]) Current Condition History of Current Condition Onset Date 3-4 years Current Complaints B hip, R ankle pain History of Current Condition Pt states that she has had B hip pain for years. It is worse with activity such as prolonged walking or when running and jumping which she only does when playing with her dog. She was told she has inflammed nerves in her hips and that's the cause. Pt also has R ankle pain that she believes is from recurrent ankle sprains with her most recent one being in the summer of this year. She states her hip and ankle pop all the time and that's very painful. PT-OP-C Subjective Start: 07/07/23 14:44 Freq: Status: Active Protocol: Document 07/26/23 17:12 ED (Rec: 07/26/23 17:16 ED [id number]) OP-PT Subjective Patient Comments Patient Comments Pt notes her R knee is feeling better but still is slightly painful. Hips are her primary complaint recently. States that she has been going on walks a little more now. PT-OP-D Balance Start: 07/07/23 14:44 Freq: Status: Active Protocol: Document 07/07/23 15:33 ED (Rec: 07/07/23 15:48 ED [id number]) Balance Tests Single Limb Standing Single Limb- Right 5 seconds Single Limb- Left >10 seconds PT-OP-K Range of Motion Start: 07/07/23 14:44 Freq: Status: Active Protocol: Document 07/07/23 15:33 ED (Rec: 07/07/23 15:48 ED [id number]) Ankle and Foot Goniometric Range of Motion Ankle and Foot Right Active Ankle/Foot ROM WFL Yes Testing Position Standing Comments knee to wall: 9 cm Left Active Ankle/Foot ROM WFL Yes Testing Position Standing Comments knee to wall: 13 cm PT-OP-L Special Tests Start: 07/07/23 14:44 Freq: Status: Active Protocol: Document 07/07/23 15:33 ED (Rec: 07/07/23 15:48 ED [id number]) Special Tests Hip Special Tests Posterior Labral Test Test Results - Trendelenberg Test Results - Scour Test Test Results - PT-OP-Q Treatments Start: 07/07/23 14:44 Freq: Status: Active Protocol: Document 07/26/23 17:12 ED (Rec: 07/26/23 17:16 ED [id number]) Cardio Equipment Treadmill Duration (Minutes) 5 Speed 1.2 Incline 1.0 Other retro Therapeutic Exercises Standing Exercises banded walk Resistance turquoise Equipment Used band Reps/Minutes 2x15' heel raise Standing Exercise Name SL heel raise Equipment Used CHAVO Reps/Minutes 2x15 post tib heel raise Equipment Used small ball Reps/Minutes 2x20 Therapeutic Activity Therapeutic Activity hinge Name B stance RDL Reps/Minutes 3x10 Comments 10# squat Name namibian split squat Reps/Minutes 3x8 Comments foam pad + dowel for balance Neuro Re-Education Treatment Balance Activities hip airplane Details hip airplane Surface flat Equipment n/a Reps/Duration 3x4/leg PT-OP-T Assessment and Plan Start: 07/07/23 14:44 Freq: Status: Active Protocol: Document 07/26/23 17:12 ED (Rec: 07/26/23 17:16 ED [id number]) Physical Therapy Assessment Goals impact activities Impairment impact activities Prison Goal (LTG) Pt will be able to perform jumping and landing activities c/o pain in ankles or hips. LTG Duration 6-8 weeks % improvement Impairment % improvement Short Term Goal (STG) Pt will report 15% improvement in B hip and/or R ankle pain. STG Duration 3 weeks Histologic Aide Goal (LTG) Pt will report 50% improvement in B hip and/or R ankle pain. LTG Duration 6-8 weeks single leg heel raise Impairment R LE single leg heel raise Short Term Goal (STG) Pt will be able to perform 5 single leg heel raises on R LE c/o pain. STG Duration 3 weeks Prison Goal (LTG) Pt will be able to perform 10 full ROM single leg heel raises on R LE c/o pain. LTG Duration 6-8 weeks LEFS Impairment LEFS Impairment score at evaluation: 44 / 80 Histologic Aide Goal (LTG) Pt will improve LEFS score by > 9 points to a score <35/80. LTG Duration 6-8 weeks HEP Impairment HEP Short Term Goal (STG) Pt will report performing HEP >3 days/week. STG Duration 2-3 weeks Prison Goal (LTG) Pt will report performing HEP >3 days/week. LTG Duration 6-8 weeks Assessment Summary Assessment Worked primarily on hip exercises including B stance RDLs, namibian split squats, and hip airplanes. Pt had slight R knee discomfort during BSS so PT reduced the ROM which helped reduce knee pain. Pt had difficulty with hip airplanes which is a hip stability focused movements but she improved with repetition. Physical Therapy Plan Frequency and Duration Frequency of Treatment 2x/Week Duration of treatment (weeks) 10 Plan of Care Start Date 07/07/23 Plan of Care End Date 10/05/23 Next Visit Focus/Plan Next Note Type Treatment Note Next Visit Plan TM, retro TM, (post tib heel raise, butt busters, SL balance) banded walk, ankle mobs, LTRs, pigeon stretch, squat
--- NOTE | 2023-07-27 15:35 | PT.OTN ---
Current Diagnoses Pain in right hip (07/27/23) Pain in left hip (07/27/23) Pain in right ankle and joints of right foot (07/27/23) Physical Therapy Treatment Note PT-OP-A Visit Information Start: 07/07/23 14:44 Freq: Status: Active Protocol: Document 07/27/23 15:29 ED (Rec: 07/27/23 15:35 ED [id number]) Out-Patient Physical Therapy Visit Information Visit Information Visit Type Treatment Note Visit Note 03/25 Visit Start Time 15:05 Visit Stop Time 15:30 Total Visit Minutes 25 Visit Number 3 PT-OP-B Current Condition Start: 07/07/23 14:44 Freq: Status: Active Protocol: Document 07/07/23 15:33 ED (Rec: 07/07/23 15:48 ED [id number]) Current Condition History of Current Condition Onset Date 3-4 years Current Complaints B hip, R ankle pain History of Current Condition Pt states that she has had B hip pain for years. It is worse with activity such as prolonged walking or when running and jumping which she only does when playing with her dog. She was told she has inflammed nerves in her hips and that's the cause. Pt also has R ankle pain that she believes is from recurrent ankle sprains with her most recent one being in the summer of this year. She states her hip and ankle pop all the time and that's very painful. PT-OP-C Subjective Start: 07/07/23 14:44 Freq: Status: Active Protocol: Document 07/27/23 15:29 ED (Rec: 07/27/23 15:35 ED [id number]) OP-PT Subjective Patient Comments Patient Comments Pt states that her quads are very sore today. PT-OP-D Balance Start: 07/07/23 14:44 Freq: Status: Active Protocol: Document 07/07/23 15:33 ED (Rec: 07/07/23 15:48 ED [id number]) Balance Tests Single Limb Standing Single Limb- Right 5 seconds Single Limb- Left >10 seconds PT-OP-K Range of Motion Start: 07/07/23 14:44 Freq: Status: Active Protocol: Document 07/07/23 15:33 ED (Rec: 07/07/23 15:48 ED [id number]) Ankle and Foot Goniometric Range of Motion Ankle and Foot Right Active Ankle/Foot ROM WFL Yes Testing Position Standing Comments knee to wall: 9 cm Left Active Ankle/Foot ROM WFL Yes Testing Position Standing Comments knee to wall: 13 cm PT-OP-L Special Tests Start: 07/07/23 14:44 Freq: Status: Active Protocol: Document 07/07/23 15:33 ED (Rec: 07/07/23 15:48 ED [id number]) Special Tests Hip Special Tests Posterior Labral Test Test Results - Trendelenberg Test Results - Scour Test Test Results - PT-OP-Q Treatments Start: 07/07/23 14:44 Freq: Status: Active Protocol: Document 07/27/23 15:29 ED (Rec: 07/27/23 15:35 ED [id number]) Cardio Equipment Recumbent Bicycle Duration (Minutes) 5 Therapeutic Exercises Supine Exercises leg press Supine Exercise Name leg press Resistance 50# Reps/Minutes 1x30 Sitting Exercises hamstring curl Resistance l2 Equipment Used leg machine Reps/Minutes 2X15 Other Exercises couch stretch Other Exercise Name couch stretch Reps/Minutes 2x1 minute PT-OP-T Assessment and Plan Start: 07/07/23 14:44 Freq: Status: Active Protocol: Document 07/27/23 15:29 ED (Rec: 07/27/23 15:35 ED [id number]) Physical Therapy Assessment Goals impact activities Impairment impact activities Care Home Goal (LTG) Pt will be able to perform jumping and landing activities c/o pain in ankles or hips. LTG Duration 6-8 weeks % improvement Impairment % improvement Short Term Goal (STG) Pt will report 15% improvement in B hip and/or R ankle pain. STG Duration 3 weeks Care Home Goal (LTG) Pt will report 50% improvement in B hip and/or R ankle pain. LTG Duration 6-8 weeks single leg heel raise Impairment R LE single leg heel raise Short Term Goal (STG) Pt will be able to perform 5 single leg heel raises on R LE c/o pain. STG Duration 3 weeks Care Home Goal (LTG) Pt will be able to perform 10 full ROM single leg heel raises on R LE c/o pain. LTG Duration 6-8 weeks LEFS Impairment LEFS Impairment score at evaluation: 44 / 80 Care Home Goal (LTG) Pt will improve LEFS score by > 9 points to a score <35/80. LTG Duration 6-8 weeks HEP Impairment HEP Short Term Goal (STG) Pt will report performing HEP >3 days/week. STG Duration 2-3 weeks Care Home Goal (LTG) Pt will report performing HEP >3 days/week. LTG Duration 6-8 weeks Assessment Summary Assessment Due to muscle soreness, PT performed low resistance exercises for LEs. Pt able to do exercises without discomfort; reported slight decrease in soreness at conclusion of session. Physical Therapy Plan Frequency and Duration Frequency of Treatment 2x/Week Duration of treatment (weeks) 10 Plan of Care Start Date 07/07/23 Plan of Care End Date 10/05/23 Next Visit Focus/Plan Next Note Type Treatment Note Next Visit Plan TM, retro TM, (post tib heel raise, butt busters, SL balance) banded walk, ankle mobs, LTRs, pigeon stretch, squat
--- NOTE | 2023-08-03 14:48 | PT.OPDS ---
Current Diagnoses Pain in right hip (07/27/23) Pain in left hip (07/27/23) Pain in right ankle and joints of right foot (07/27/23) Visit Care Team Role Provider Apoorva Austin MD Attending Provider Physician Family Provider Primary Care Provider Referring Provider Specialty: Pediatrics Address: [address] [place] [address], [address] Email: [email or web address] Visit Number Visit Number 3 Discharge Summary PT-OP-B Current Condition Start: 07/07/23 14:44 Freq: Status: Active Protocol: Document 07/07/23 15:33 ED (Rec: 07/07/23 15:48 ED [id number]) Current Condition History of Current Condition Onset Date 3-4 years Current Complaints B hip, R ankle pain History of Current Condition Pt states that she has had B hip pain for years. It is worse with activity such as prolonged walking or when running and jumping which she only does when playing with her dog. She was told she has inflammed nerves in her hips and that's the cause. Pt also has R ankle pain that she believes is from recurrent ankle sprains with her most recent one being in the summer of this year. She states her hip and ankle pop all the time and that's very painful. PT-OP-C Subjective Start: 07/07/23 14:44 Freq: Status: Active Protocol: Document 07/27/23 15:29 ED (Rec: 07/27/23 15:35 ED [id number]) OP-PT Subjective Patient Comments Patient Comments Pt states that her quads are very sore today. PT-OP-D Balance Start: 07/07/23 14:44 Freq: Status: Active Protocol: Document 07/07/23 15:33 ED (Rec: 07/07/23 15:48 ED [id number]) Balance Tests Single Limb Standing Single Limb- Right 5 seconds Single Limb- Left >10 seconds PT-OP-K Range of Motion Start: 07/07/23 14:44 Freq: Status: Active Protocol: Document 07/07/23 15:33 ED (Rec: 07/07/23 15:48 ED [id number]) Ankle and Foot Goniometric Range of Motion Ankle and Foot Right Active Ankle/Foot ROM WFL Yes Testing Position Standing Comments knee to wall: 9 cm Left Active Ankle/Foot ROM WFL Yes Testing Position Standing Comments knee to wall: 13 cm PT-OP-L Special Tests Start: 07/07/23 14:44 Freq: Status: Active Protocol: Document 07/07/23 15:33 ED (Rec: 07/07/23 15:48 ED [id number]) Special Tests Hip Special Tests Posterior Labral Test Test Results - Trendelenberg Test Results - Scour Test Test Results - PT-OP-T Assessment and Plan Start: 07/07/23 14:44 Freq: Status: Active Protocol: Document 08/03/23 14:48 ED (Rec: 08/03/23 14:48 ED [id number]) Physical Therapy Assessment Goals impact activities Impairment impact activities Quality Assurance Supervisor Final Goal (LTG) Pt will be able to perform jumping and landing activities c/o pain in ankles or hips. LTG Duration 6-8 weeks % improvement Impairment % improvement Short Term Goal (STG) Pt will report 15% improvement in B hip and/or R ankle pain. STG Duration 3 weeks Care Home Goal (LTG) Pt will report 50% improvement in B hip and/or R ankle pain. LTG Duration 6-8 weeks single leg heel raise Impairment R LE single leg heel raise Short Term Goal (STG) Pt will be able to perform 5 single leg heel raises on R LE c/o pain. STG Duration 3 weeks Care Home Goal (LTG) Pt will be able to perform 10 full ROM single leg heel raises on R LE c/o pain. LTG Duration 6-8 weeks LEFS Impairment LEFS Impairment score at evaluation: 44 / 80 Quality Assurance Supervisor Final Goal (LTG) Pt will improve LEFS score by > 9 points to a score <35/80. LTG Duration 6-8 weeks HEP Impairment HEP Short Term Goal (STG) Pt will report performing HEP >3 days/week. STG Duration 2-3 weeks Quality Assurance Supervisor Final Goal (LTG) Pt will report performing HEP >3 days/week. LTG Duration 6-8 weeks Assessment Summary Assessment Pt will be discharged from PT at this time d/t attendence issues. Pt missed over 50% of her scheduled appointments including evaluations and treatment visits. Physical Therapy Plan Discharge Physical Therapy Discharge Reasons No Longer Attending PT
== END 2023-08-10 14:16 | disposition home or self-care (01) ==
LOC: PHYS 15:15
PROVIDERS: Family Provider Pediatrics; PCP Pediatrics; Referring Provider Pediatrics; Visit Provider Pediatrics
DX: M25.551 Pain in right hip (principal); M25.552 Pain in left hip; M25.571 Pain in right ankle and joints of right foot
CPT/HCPCS: 97110; 97112; 97162